=== PATIENT | female | born 1985 | race Caucasian/White ===

== ENCOUNTER 2016-08-05 09:42 | Emergency (ER) | payer BC, MEDICAID ==
[2016-08-05 10:10] VITALS: BP 111/74
--- NOTE | 2016-08-05 10:23 | UC ---
[facility] HPI - HPI Summary HPI Summary: 1. LEFT SIDE NECK PAIN X 6 DAYS , PAIN RADIATES TO HER LEFT SHOULDER AND LEFT ARM , + TINGLING AT TIMES, INCREASE PAIN WITH NECK MOVEMENTS , BETTER WITH REST , 2. DENTAL PAIN ON AND OFF FOR 1 MONTH - History of Current Complaint Chief Complaint: UCDentalProblem Stated Complaint: NECK/ARM/DENTAL PAIN Time Seen by Provider: 08/05/16 10:11 Hx Obtained From: Patient Hx Last Menstrual Period: spotting off/on starting last week. Last Depo was ; Onset/Duration: Gradual Onset, Lasting Weeks - 4, Still Present Severity: Mild Aggravating: Chewing Alleviating: Nothing - Allergies/Home Medications Allergies/Adverse Reactions: Allergies Allergy/AdvReac Type Severity Reaction Status Date / Time No Known Allergies Allergy Verified 08/05/16 10:10 Home Medications: Home Medications Ibuprofen TAB* [Advil TAB*] 400 mg PO Q6H PRN 08/05/16 [History Confirmed ] PMH/Surg Hx/FS Hx/Imm Hx Previously Healthy: Yes - Surgical History Surgical History: Yes Surgery Procedure, Year, and Place: T&A age 5 - Family History Known Family History: Positive: Cardiac Disease - both grandparents - Social History Alcohol Use: None Substance Use Type: None Smoking Status (MU): Never Smoked Tobacco Have You Smoked in the Last Year: No Review of Systems Constitutional: Negative Skin: Negative Eyes: Negative ENT: Dental Pain Respiratory: Negative Cardiovascular: Negative Musculoskeletal: Other: - NECK PAIN Neurological: Negative All Other Systems Reviewed And Are Negative: Yes Physical Exam Triage Information Reviewed: Yes Appearance: Well-Appearing, No Pain Distress, Well-Nourished Vital Signs: Initial Vital Signs Temp 99 F 08/05/16 09:58 Pulse 82 08/05/16 09:58 Resp 18 08/05/16 09:58 BP 111/74 08/05/16 09:58 Pulse Ox 97 08/05/16 09:58 Vital Signs Reviewed: Yes Eyes: Positive: Conjunctiva Clear ENT: Positive: Normal ENT inspection Dental: Positive: Gross Decay/Caries @ - # 31 Neck: Positive: No Lymphadenopathy, Tenderness @ - LEFT SIDE OF NECK, Other: - LIMITED ROM TO ROTATION. Negative: Enlarged Nodes @ Respiratory: Positive: Lungs clear Cardiovascular: Positive: RRR, No Murmur, Pulses Normal Musculoskeletal Exam: Normal Skin Exam: Normal Dental Complaint Course/Dx - Differential Dx/Diagnosis Provider Diagnoses: THORACIC OUTLET SYNDROME. DENTAL PAIN Discharge - Discharge Plan Condition: Stable Disposition: HOME Prescriptions: Amoxicillin (*) [Amoxicillin 875 MG (*)] 875 mg PO BID #20 tab Cyclobenzaprine TAB* [Flexeril 10 MG TAB*] 10 mg PO BID #20 tab Naproxen [Naproxen EC 500 MG TAB] 500 mg PO BID #20 tab Patient Education Materials: Dental Caries (ED), Thoracic Outlet Syndrome (ED) Referrals: Marisela Jean Baptiste MD [Primary Care Provider] - 7 Days
== END 2016-08-05 10:25 | disposition home or self-care (01) ==
LOC: UCCORT 09:42
DX: G54.0 Brachial plexus disorders (principal); K08.89 Other specified disorders of teeth and supporting structures
CPT/HCPCS: 99212; G0463

== ENCOUNTER 2018-07-20 13:02 | Emergency (ER) | payer OTHER ==
[2018-07-20 14:15] VITALS: BP 122/70
--- NOTE | 2018-07-23 07:10 | UC ---
[facility] HPI - HPI Summary HPI Summary: dental pain x 1 day pain right lower back molar pain is sharp , 8 out of 10 , worse with chewing and cold better with Tylenol no fever, no chills - History of Current Complaint Chief Complaint: UCDentalProblem Stated Complaint: DENTAL Time Seen by Provider: 07/20/18 14:17 Hx Obtained From: Patient Hx Last Menstrual Period: 07/17/18 ?: No Onset/Duration: Gradual Onset, Lasting Days - 1, Still Present Severity: Moderate Pain Intensity: 8 Pain Scale Used: 0-10 Numeric Aggravating Factor(s): Cold, Chewing Alleviating Factor(s): OTC Meds Dental: 1 - pain / tenderness - Allergies/Home Medications Allergies/Adverse Reactions: Allergies Allergy/AdvReac Type Severity Reaction Status Date / Time No Known Allergies Allergy Verified 07/20/18 14:10 PMH/Surg Hx/FS Hx/Imm Hx Previously Healthy: Yes - Surgical History Surgical History: Yes Surgery Procedure, Year, and Place: T&A age 5 - Family History Known Family History: Positive: Cardiac Disease - both grandparents - Social History Alcohol Use: None Substance Use Type: None Smoking Status (MU): Never Smoked Tobacco Have You Smoked in the Last Year: No Review of Systems All Other Systems Reviewed And Are Negative: Yes Constitutional: Positive: Negative Skin: Positive: Negative Eyes: Positive: Negative ENT: Positive: Dental Pain Respiratory: Positive: Negative Cardiovascular: Positive: Negative Is Patient Immunocompromised?: No Physical Exam Triage Information Reviewed: Yes Appearance: Well-Appearing, No Pain Distress, Well-Nourished Vital Signs: Initial Vital Signs Temp 98.1 F 07/20/18 14:11 Pulse 75 07/20/18 14:11 Resp 16 07/20/18 14:11 BP 122/70 07/20/18 14:11 Pulse Ox 100 07/20/18 14:11 Vital Signs Reviewed: Yes Eye Exam: Normal Eyes: Positive: Conjunctiva Clear ENT: Positive: Normal ENT inspection, Hearing grossly normal, Pharynx normal Dental: Positive: Percussion Tenderness @ - #30, Gross Decay/Caries @ - #30 Neck: Positive: Supple, Nontender, No Lymphadenopathy Respiratory: Positive: Chest non-tender, Lungs clear, Normal breath sounds Cardiovascular: Positive: RRR, No Murmur, Pulses Normal Skin Exam: Normal Dental Complaint Course/Dx - Differential Dx/Diagnosis Provider Diagnosis: Dental caries Discharge - Sign-Out/Discharge Documenting (check all that apply): Patient Departure All imaging exams completed and their final reports reviewed: No Studies - Discharge Plan Condition: Stable Disposition: HOME Prescriptions: Amoxicillin PO (*) [Amoxicillin 875 MG (*)] 875 mg PO BID #20 tab Patient Education Materials: Toothache (ED) Referrals: Katelyn Keller MD [Primary Care Provider] - If Needed Additional Instructions: follow up with your dentist lyndsay - Billing Disposition and Condition Condition: STABLE Disposition: Home
== END 2018-07-20 14:42 | disposition home or self-care (01) ==
LOC: UCCORT 13:02
DX: K02.9 Dental caries, unspecified (principal)
CPT/HCPCS: 99212; G0463

== ENCOUNTER 2018-10-12 21:01 | Emergency (ER) | payer OTHER ==
[2018-10-12 21:16] VITALS: BP 133/88
--- NOTE | 2018-10-12 21:26 | ED ---
Respiratory - HPI Summary HPI Summary: 33 yr old with nasal congestion, cough, and sore throat for over a week. She has mild symptoms. She is also complaining of right flank pain, dysuria, and frequency. She denies fever. She denies NV. Back/flank pain is mild. She reports prior UTI in the past. No fever. - History of Current Complaint Chief Complaint: UCGeneralIllness Stated Complaint: COUGH,SORE THROAT,URINARY Time Seen by Provider: 10/12/18 21:18 Pain Intensity: 8 - Allergy/Home Medications Allergies/Adverse Reactions: Allergies Allergy/AdvReac Type Severity Reaction Status Date / Time No Known Allergies Allergy Verified 10/12/18 21:14 PMH/Surg Hx/FS Hx/Imm Hx - Surgical History Surgery Procedure, Year, and Place: T&A age 5 Infectious Disease History: No Infectious Disease History: Denies: Traveled Outside the [place] in Last 30 Days - Family History Known Family History: Positive: Cardiac Disease - both grandparents - Social History Occupation: Employed Full-time Alcohol Use: None Substance Use Type: Reports: None Smoking Status (MU): Never Smoked Tobacco Have You Smoked in the Last Year: No Review of Systems Constitutional: Negative Positive: Sore Throat, Nasal Discharge Positive: Cough Negative: Abdominal Pain, Vomiting, Diarrhea Positive: dysuria, frequency, flank pain All Other Systems Reviewed And Are Negative: Yes Physical Exam Triage Information Reviewed: Yes Vital Signs On Initial Exam: Initial Vitals Temp Pulse Resp BP Pulse Ox 98.1 F 88 16 133/88 99 10/12/18 21:14 10/12/18 21:14 10/12/18 21:14 10/12/18 21:14 10/12/18 21:14 Vital Signs Reviewed: Yes Appearance: Positive: Well-Appearing, No Pain Distress Skin: Positive: Warm, Skin Color Reflects Adequate Perfusion Head/Face: Positive: Normal Head/Face Inspection Eyes: Positive: EOMI, OLENA ENT: Positive: Pharyngeal erythema, Nasal congestion, TMs normal. Negative: Sinus tenderness Neck: Positive: Nontender Respiratory/Lung Sounds: Positive: Clear to Auscultation, Breath Sounds Present Cardiovascular: Positive: RRR. Negative: Murmur Abdomen Description: Positive: Nontender. Negative: CVA Tenderness (R), CVA Tenderness (L) Musculoskeletal: Positive: Strength/ROM Intact Neurological: Positive: Sensory/Motor Intact, Alert, Oriented to Person Place, Time, CN Intact II-III Psychiatric: Positive: Normal Diagnostics - Vital Signs Vital Signs Temp Pulse Resp BP Pulse Ox 10/12/18 21:14 98.1 F 88 16 133/88 99 - Laboratory Lab Statement: Any lab studies that have been ordered have been reviewed, and results considered in the medical decision making process. Disposition - Course Course Of Treatment: 33 yr old with UTI and URI. DC home on Bactrim DS. - Diagnoses Provider Diagnoses: UTI (urinary tract infection), Upper respiratory infection Discharge - Sign-Out/Discharge Documenting (check all that apply): Patient Departure All imaging exams completed and their final reports reviewed: No Studies - Discharge Plan Condition: Good Disposition: HOME Prescriptions: Sulfamethox/Trimethoprim DS* [Bactrim DS 800/160 TAB*] 1 tab PO BID #14 tab Patient Education Materials: Urinary Tract Infection in Women (DC), Upper Respiratory Infection (ED) Referrals: Katelyn Keller MD [Primary Care Provider] - 2 Days - Billing Disposition and Condition Condition: GOOD Disposition: Home
[2018-10-12] MEDS ORDERED: Sulfamethox/Trimethoprim DS 800/160* TAB PO ONE (21:36)
== END 2018-10-12 21:42 | disposition home or self-care (01) ==
LOC: UCCORT 21:01
DX: N39.0 Urinary tract infection, site not specified (principal); J06.9 Acute upper respiratory infection, unspecified
CPT/HCPCS: 81003; 84702; 87086; 99212; A9270-GY; G0463